=== PATIENT | male | born 2000 | race African-American/Black ===

== ENCOUNTER 2018-01-06 10:08 | Outpatient (CLI) | payer OTHER ==
[~2018-01-06 10:08] MED LIST: ALBU2.5V7 INH; FEXO180T94 PO; FLUT16SP24 NS; FLUT1DIS3 INH; VYVANSE PO
== END 2018-01-06 18:25 | disposition home or self-care (01) ==
LOC: SRD 10:08
PROVIDERS: ATTEND Family Medicine
DX: S43.421A Sprain of right rotator cuff capsule, initial encounter (principal); X58.XXXA Exposure to other specified factors, initial encounter; Y93.89 Activity, other specified; Y92.89 Other specified places as the place of occurrence of the external cause; Y99.8 Other external cause status
CPT/HCPCS: 73030

== ENCOUNTER 2018-04-13 09:21 | Emergency (ER) | payer OTHER ==
[~2018-04-13] VITALS: Ht 180.3 cm; Wt 86.2 kg
[2018-04-13 09:29] VITALS: BP_SYST 124
[2018-04-13 10:05] VITALS: BP_SYST 120
== END 2018-04-13 10:05 | disposition home or self-care (01) ==
LOC: SED 09:21
DX: J02.9 Acute pharyngitis, unspecified (principal); J45.909 Unspecified asthma, uncomplicated; Z91.012 Allergy to eggs; Z91.010 Allergy to peanuts
CPT/HCPCS: 99283

== ENCOUNTER 2018-11-30 07:14 | Emergency (ER) | payer OTHER ==
[~2018-11-30] VITALS: Ht 180.3 cm; Wt 90.7 kg
--- NOTE | 2018-11-30 07:23 | NUR ---
Triaged at bedside in room 7. Endorsed to Vinnie MARIE
--- NOTE | 2018-11-30 07:23 | NUR ---
Pt c/o sore throat "feels like strep," neck and head pain with poor appetite since yesterday. Pt was seen at an Urgent care yesterday and was Dx Influenza and Rx Tamiflu, Motrin and Tylenol. Mother states that she picked up her son from [facility] this AM r/t pt.'s ongoing fever of 102. Pt last medicated with Motrin 600 mg last night at 2200.
[2018-11-30 07:24] VITALS: BP_SYST 140
--- NOTE | 2018-11-30 07:45 | NUR ---
Dr. Posey at bedside.
[2018-11-30] MEDS ORDERED: PENICILLIN G BENZATHINE 1.2 MMU/2 ML SYR IM ONE ×2 (08:00→08:15)
[2018-11-30] MEDS ORDERED: ACETAMINOPHEN 500 MG TABLET PO ONE (08:00)
[2018-11-30] MEDS ORDERED: KETOROLAC TROMETHAMINE 60 MG/2 ML VIAL IM ONE (08:00)
[2018-11-30] MEDS ORDERED: DEXAMETHASONE SOD PHOSPHATE 10 MG/ML VIAL IM ONE (08:00)
--- NOTE | 2018-11-30 08:38 | NUR ---
ASSUMED PATIENT CARE, CONCUR WITH PREVIOUS NURSING ASSESSMENTS.
[2018-11-30] MEDS ORDERED: IBUPROFEN 800 MG TABLET PO ONE (09:15)
[2018-11-30 09:44] VITALS: BP_SYST 120
--- NOTE | 2018-11-30 09:46 | NUR ---
DISPO AND MEDICAL DECISION MAKING, DC HOME WITH INSTRUCTIONS AND PRESCRIPTIONS, ALL INSTRUCTIONS UNDERSTOOD BY PATIENT WELL, TEMP DOWN TO 100.4F. DC HOME AMBULATORY, VS WNL, NO DISTRESS.
== END 2018-11-30 09:50 | disposition home or self-care (01) ==
LOC: SED 07:14
DX: J02.9 Acute pharyngitis, unspecified (principal); J45.909 Unspecified asthma, uncomplicated; F90.9 Attention-deficit hyperactivity disorder, unspecified type; Z79.899 Other long term (current) drug therapy
CPT/HCPCS: 96372; 99283; J0561; J1100; J1885

== ENCOUNTER 2019-07-01 08:41 | Outpatient (CLI) | payer OTHER | END 2019-07-01 19:01 | disposition home or self-care (01) | LOC: SRD 08:41 | DX: J32.9 Chronic sinusitis, unspecified (principal) | CPT/HCPCS: 70220-TC ==

== ENCOUNTER 2019-10-25 09:22 | Emergency (ER) | payer OTHER ==
[~2019-10-25] VITALS: Ht 180.3 cm; Wt 97.5 kg
[2019-10-25 09:31] VITALS: BP_SYST 120
--- NOTE | 2019-10-25 09:34 | NUR ---
Patient to ER bed 04 to gown for evaluation. Side rails up.
--- NOTE | 2019-10-25 09:36 | NUR ---
Patient arrived in the ED, c/o cough and congestion for 1 week.Denied any recent injury or trauma. Denied any fevers, chills, N/V. Patient is alert and oriented x4, respirations even and unlabored, speaking in full sentences, ambulating with a steady gait. VSS, pain level 2/10. Informed of the wait time. INstructed to notify ED staff for any changes in condition or worsening of symptoms. Patient verbalized understanding.
--- NOTE | 2019-10-25 09:39 | NUR ---
ER Dr. Valdez at bedside examining patient.
[2019-10-25] MEDS ORDERED: DEXAMETHASONE SOD PHOSPHATE 10 MG/ML VIAL IM ONE (10:00)
--- NOTE | 2019-10-25 10:07 | NUR ---
Administered Decadron IM as ordered by Dr. Valdez. Patient tolerated the medication well.
--- NOTE | 2019-10-25 10:08 | NUR ---
Patient given written and verbal discharge instructions and verbalizes understanding. ER MD discussed with patient the results and treatment provided. Patient in stable condition. ID arm band removed. Rx of Augmentin given. Patient educated on pain management and to follow up with PMD. Pain Scale 0/10. Opportunity for questions provided and answered. Medication side effect fact sheet provided.
[2019-10-25 10:36] VITALS: BP_SYST 120
== END 2019-10-25 10:36 | disposition home or self-care (01) ==
LOC: SED 09:22
DX: J01.90 Acute sinusitis, unspecified (principal); J45.909 Unspecified asthma, uncomplicated; F90.9 Attention-deficit hyperactivity disorder, unspecified type; F12.90 Cannabis use, unspecified, uncomplicated; Z79.899 Other long term (current) drug therapy
CPT/HCPCS: 96372; 99283; J1100

== ENCOUNTER 2021-10-23 04:58 | Emergency (ER) | payer OTHER ==
[~2021-10-23] VITALS: Ht 177.8 cm; Wt 81.6 kg
[2021-10-23 05:05] VITALS: BP_SYST 119
--- NOTE | 2021-10-23 06:14 | NUR ---
Patient to ER bed 8 to gown for evaluation. Side rails up. Report given to MIRYAM MARIE.
--- NOTE | 2021-10-23 06:16 | NUR ---
X-ray performed at the bedside.Pt tolerated well.
--- NOTE | 2021-10-23 06:30 | NUR ---
ER at bedside examining patient.
[2021-10-23] MEDS ORDERED: NAPR-688 PO (06:39)
--- NOTE | 2021-10-23 06:45 | NUR ---
Air ankle stirrup splint applied to patients left ankle
[2021-10-23 06:47] VITALS: BP_SYST 122
--- NOTE | 2021-10-23 06:47 | NUR ---
Patient given written and verbal discharge instructions and verbalizes understanding. ER MD discussed with patient the results and treatment provided. Patient in stable condition. ID arm band removed. No iV Rx of naproxen given. Patient educated on pain management and to follow up with PMD. Pain Scale 0/10. Opportunity for questions provided and answered. Medication side effect fact sheet provided.
== END 2021-10-23 06:47 | disposition home or self-care (01) ==
LOC: SED 04:58
DX: S93.402A Sprain of unspecified ligament of left ankle, initial encounter (principal); Z91.012 Allergy to eggs; Z91.010 Allergy to peanuts; X50.1XXA Overexertion from prolonged static or awkward postures, initial encounter; Y93.23 Activity, snow (alpine) (downhill) skiing, snowboarding, sledding, tobogganing and snow tubing; Y92.89 Other specified places as the place of occurrence of the external cause; Y99.8 Other external cause status
CPT/HCPCS: 99283